=== PATIENT | female | born 1990 | race Caucasian/White ===

== ENCOUNTER 2020-03-09 12:56 | Inpatient (IN) | payer BC ==
[2020-03-14] MEDS ORDERED: TERBUTALINE 1 MG/ML VIAL SQ PRN (06:22)
[2020-03-14] MEDS ORDERED: CARBOPROST TROMETHAMINE 250 MCG/ML 1 ML AMP IM PRN (06:22)
[2020-03-14] MEDS ORDERED: OXYTOCIN 10 UNIT/ML 1 ML VIAL IM PRN (06:22)
[2020-03-14] MEDS ORDERED: LIDOCAINE 0.5% (PF) 5 MG/ML (50 ML SDV) SQ PRN (06:22)
[2020-03-14] MEDS ORDERED: METHYLERGONOVINE 0.2 MG/ML 1 ML AMP IM PRN (06:22)
[2020-03-14] MEDS ORDERED: OXYTOCIN 30 UNITS/500 ML NS 30 UNIT in SALINE 1 500ML.BAG IV SCH (06:30)
[2020-03-14] MEDS: LACTATED RINGERS 1,000 ML IV SCH ×3 (06:39→23:00)
[2020-03-14 07:00] LABS: Anisocytosis Slight; Basophils % (A) 0 %; Eosinophils % (A) 0 %; HCT 34.9 % (34.0-46.0); HGB 10.8 gm/dL (11.4-16.0); Hypochromasia Slight; Lymphocytes # (A) 1.5 k/uL (1.0-4.8); Lymphocytes % (A) 10 %; Mean Platelet Volume 10.5; Monocytes # (A) 0.6 k/uL (0-1.0); Monocytes % (A) 4 %; Neutrophils % (A) 84 %; Platelet Count 233 k/uL (150-450); RBC 4.15 m/uL (3.80-5.40); RDW 17.4 % (11.5-15.5); WBC 14.4 k/uL (3.8-10.6)
[2020-03-14] MEDS ORDERED: ROPIVACAINE 100 MG, fentaNYL (PF) 200 MCG in SODIUM CHLORIDE 0.9% 76 ML EPIDURAL ONE (08:56)
[2020-03-14] MEDS ORDERED: CITRIC ACID-SODIUM CITRATE 15 ML CUP PO ONE (14:11)
[2020-03-14] MEDS ORDERED: ONDANSETRON 4 MG/2 ML VIAL ONE (14:18)
[2020-03-14] MEDS ORDERED: HYDROmorphone (PF) 1 MG/ML ONE (14:18)
[2020-03-14] MEDS ORDERED: DEXAMETHASONE SOD PHOS (MDV) 100 MG/10 ML VIAL ONE (14:18)
[2020-03-14] MEDS ORDERED: MORPHINE SULFATE (PF) 0.3 MG/0.3 ML SYR ONE (14:18)
[2020-03-14] MEDS ORDERED: KETAMINE 10 MG/ML 20 ML VIAL ONE (14:18)
[2020-03-14] MEDS ORDERED: KETOROLAC 30 MG/ML 1 ML VIAL ONE (14:18)
[2020-03-14] MEDS ORDERED: OXYTOCIN 10 UNIT/ML 1 ML VIAL ONE (14:18)
[2020-03-14] MEDS ORDERED: ONDANSETRON 4 MG/2 ML VIAL IVP PRN (15:22)
[2020-03-14] MEDS ORDERED: diphenhydrAMINE 25 MG CAP PO PRN (15:22)
[2020-03-14] MEDS ORDERED: METOCLOPRAMIDE 5 MG/ML 2 ML VIAL IVP PRN (15:22)
[2020-03-14] MEDS ORDERED: diphenhydrAMINE 50 MG CAP PO PRN (15:22)
[2020-03-14] MEDS ORDERED: ZOLPIDEM 5 MG TAB PO PRN (15:22)
[2020-03-14] MEDS ORDERED: NALOXONE 0.4 MG/ML 1 ML VIAL IV PRN (15:22)
[2020-03-14] MEDS ORDERED: HYDROcodone/APAP 5-325MG 1 EACH TAB PO PRN (15:22)
[2020-03-14] MEDS ORDERED: diphenhydrAMINE 50 MG/ML 1 ML VIAL IVP PRN ×2 (15:22)
[2020-03-14] MEDS ORDERED: ACETAMINOPHEN IV (For NPO) 1,000 MG in EMPTY BAG 1 BAG IVPB ONE (15:22)
[2020-03-14] MEDS ORDERED: IBUPROFEN IV 800 MG in SODIUM CHLORIDE 0.9% 250 ML IV ONE (15:24)
[2020-03-14] MEDS ORDERED: OXYTOCIN 20 UNITS/1000 ML NS 1,000 ML IV SCH (15:30)
--- NOTE | 2020-03-14 15:31 | P.HPOB ---
History of Present Illness H&P Date: 03/14/20 Chief Complaint: IUP at 40 and 5/sevenths weeks, labor This is a pleasant 29-year-old 1 para 0 at 40-5/7 weeks that presents to labor and delivery for induction of labor. Patient notes contractions on yesterday morning. Patient was sanjiv every 7 minutes. Patient is significantly uncomfortable this morning. Patient notes good movement denies vaginal bleeding. Patient has been receiving routine care with myself since the first trimester. Review of Systems Constitutional: Denies chills, Denies fatigue, Denies fever Ears, nose, mouth and throat: Denies headache Cardiovascular: Reports leg edema Gastrointestinal: Denies constipation, Denies diarrhea, Denies nausea, Denies vomiting Genitourinary: Reports Past Medical History Past Medical History: No Reported History History of Any Multi-Drug Resistant Organisms: None Reported Past Surgical History: No Surgical Hx Reported Past Anesthesia/Blood Transfusion Reactions: No Reported Reaction Past Psychological History: No Psychological Hx Reported Smoking Status: Never smoker Past Alcohol Use History: None Reported Past Drug Use History: None Reported - Past Family History Mother Family Medical History: No Reported History Medications and Allergies Home Medications Medication Instructions Recorded Confirmed Type Ferrous Sulfate [Feosol] 325 mg PO DAILY 03/14/20 03/14/20 History Loratadine [Claritin] 10 mg PO DAILY 03/14/20 03/14/20 History Pnv,Calcium 72/Iron/Folic Acid 1 each PO DAILY 03/14/20 03/14/20 History [ Plus Tablet] Allergies Allergy/AdvReac Type Severity Reaction Status Date / Time No Known Allergies Allergy Verified 03/14/20 06:20 Exam Osteopathic Statement: *. No significant issues noted on an osteopathic structural exam other than those noted in the History and Physical/Consult. Vital Signs Temp Pulse Resp BP Pulse Ox 03/14/20 06:30 99.0 F 134 H 18 137/85 97 Intake and Output 03/13/20 03/14/20 03/14/20 22:59 06:59 14:59 Other: Weight 102.058 kg Targeted physical exam is performed and state in general this a well-nourished well-developed female in obvious distress, labor pains. Breathing is noted to nonlabored, heart has regular rate and rhythm, abdomen is gravid, heart tones are noted to be category 1 and she is sanjiv every 2 minutes. On cervical exam she is 5/90/-1 station bulging bag of water is noted, amniotomy is performed and meconium-stained fluid is noted. Results Result Diagrams: 03/14/20 06:50 Abnormal Lab Results - Last 24 Hours (Table) 03/14/20 Range/Units 06:50 WBC 14.4 H (3.8-10.6) k/uL Hgb 10.8 L (11.4-16.0) gm/dL RDW 17.4 H (11.5-15.5) % Neutrophils # 12.0 H (1.3-7.7) k/uL Assessment and Plan (1) Post-dates Current Visit: Yes Status: Acute Code(s): O48.0 - POST-TERM SNOMED Code(s): 05764850 (2) Meconium in amniotic fluid Current Visit: Yes Status: Acute Code(s): P96.83 - MECONIUM STAINING SNOMED Code(s): 265635198 Plan: Patient is admitted to labor and delivery, Pitocin augmentation of labor is begun as I do believe patient wasn't in labor upon admission. Patient does desire epidural as she is 5 cm currently. Will watch closely as patient had an ultrasound this week revealing a 9 lbs. 11 oz. infant. Patient is aware of this risks are reviewed we will monitor labor closely.
--- NOTE | 2020-03-14 15:31 | P.OP ---
Date of Procedure: 03/14/20 Preoperative Diagnosis: IUP at 40 and 5/sevenths weeks, meconium-stained fluid, arrest of descent, tachycardia Postoperative Diagnosis: Same Procedure(s) Performed: Primary low transverse section Anesthesia: epidural Surgeon: Roula Rader Typewriter Aligner #1: Dave Livingston Estimated Blood Loss (ml): 500 IV fluids (ml): 1,000 Urine output (ml): 50 Pathology: other (Placenta) Condition: stable Disposition: observation Indications for Procedure: This pleasant 29-year-old 1 para 0 at 40-5/7 weeks presented to labor and delivery for induction of labor and was noted to be in active labor. Patient was noted to be 5 cm/90/-2 station with a bulging bag of water. Patient was admitted to labor and delivery amniotomy was performed and clear fluid was obtained. Patient was placed on Pitocin for augmentation of labor. Patient became uncomfortable quickly requesting epidural placement. Epidural was placed without difficulty by the anesthesia . Patient progressed to 8 cm and s oon afterwards was noted to be completely dilated. Patient started pushing after about 1 hour of pushing no descent was noted. There was an increasing amount of It. Patient was counseled on primary secondary to arrest of descent, patient stated understanding and wished to proceed. Operative Findings: Normal uterus tubes and ovaries were appreciated, female delivered at 1441, weight of 8 lbs. 5 oz., Apgars of 9 and 9 at one and 5 minutes respectively. Description of Procedure: Patient was taken back to the operating suite where epidural anesthesia was found be adequate. She was prepped and draped in normal sterile fashion in the dorsal supine position a Pfannenstiel skin incision was made with the scalpel and carried through the underlying layer of fascia. The fascia was then incised in the midline and extended laterally. The superior aspect of the fascial incision was grasped j carlos clamps, elevated and underlying rectus muscles dissected off sharply. The inferior aspect of the fascial incision was grasped with Coffey clamps, elevated and underlying rectus muscles dissected off sharply. The rectus muscles were in the midline the peritoneum was identified and entered. The bladder blade was then inserted into the abdomen. The vesicouterine peritoneum was identified and the bladder flap was then created using sharp dissection, the bladder blade was reinserted. The scalpel was used to make a hysterotomy incision, the was then delivered in a vertex presentation, the umbo cord was doubly clamped and cut, spontaneous cry was noted at . The placenta was then removed manually and the uterus was cleared of all clots and debris. The uterine was removed from the abdomen and h ysterotomy incision was inspected and closed with 0 Vicryl in a running locked fashion. A second layer of suture was used to obtain hemostasis. The pelvis was then irrigated copiously, the uterus then returned to the abdomen. Hysterotomy incision was noted to be hemostatic, gutters were cleared of all clots and debris. Once again the hysterotomy incision was inspected and hemostasis was appreciated. The peritoneum was then loosely reapproximated. The fascia was then closed with 0 Vicryl in a running fashion from one lateral edge the other. The subcutaneous tissue was irrigated hemostasis was appreciated. And it was closed with 3-0 Vicryl. The skin incision was closed with 4-0 Vicryl in a subarticular fashion. Steri-Strips and sterile dressings were applied as needed. All counts are correct 2 Patient and infant tolerated delivery well
[2020-03-14] MEDS: SENNOSIDES-DOCUSATE SODIUM 1 EACH TAB PO SCH (20:29)
[2020-03-15] MEDS: LACTATED RINGERS 1,000 ML IV SCH ×2 (00:53)
[2020-03-15] MEDS: IBUPROFEN 600 MG TAB PO PRN ×3 (06:08→23:34)
--- NOTE | 2020-03-15 07:08 | P.PN ---
Progress Note - Text Progress Note Date: 03/15/20 Postoperative day 1 status post section under epidural anesthesia, and epidural morphine given for postoperative analgesia, patient doing well, there is no anesthesia related complications, patient complaining of some incisional pain which is improved with oral pain medication Patient had no headache, vital signs stable , Assessment and plan= postop day 1 status post , doing well there is no anesthesia related complication.
[2020-03-15] MEDS: SENNOSIDES-DOCUSATE SODIUM 1 EACH TAB PO SCH ×2 (08:01→21:34)
[2020-03-15] MEDS: PRENATAL VIT-IRON-FOLIC ACID 1 EACH CAP PO SCH (08:01)
[2020-03-15] MEDS: FERROUS SULFATE 325 MG TAB PO SCH (08:02)
--- NOTE | 2020-03-15 08:47 | P.PNOBGPC ---
Subjective - Subjective Principal diagnosis: POD 1 LTCS Interval history: This patient did well overnight. She is ambulating and voiding without difficulty. She is complaining of symptoms discomfort this morning. She denies nausea or vomiting with clear liquid tray this morning. She is breast feeding with some difficulty but is working with the spa consultant. Lochia is minimal. Patient reports: Reports appetite normal, Reports voiding normally, Reports pain well controlled, Reports ambulating normally [place]: doing well Objective - Vital Signs Latest vital signs: Vital Signs Temp Pulse Resp BP Pulse Ox 03/15/20 03:59 96.9 F L 79 16 112/73 97 03/15/20 00:00 98.4 F 98 16 117/77 96 03/14/20 20:00 97.8 F 115 H 18 131/78 97 03/14/20 17:30 98.6 F 103 H 16 120/70 95 03/14/20 17:00 98.4 F 118 H 16 125/74 03/14/20 16:30 109 H 16 114/57 03/14/20 16:15 117 H 16 118/66 03/14/20 16:00 133 H 16 121/65 97 03/14/20 15:45 109 H 16 130/77 98 03/14/20 15:30 110 H 16 141/68 99 03/14/20 15:15 99.8 F H 107 H 16 136/88 97 Intake and Output 03/14/20 03/15/20 03/15/20 22:59 06:59 14:59 Output Total 520 925 Balance -520 -925 Output: Urine 20 925 Estimated Blood Loss 500 Other: # Voids 1 - Exam Extremities: Present: normal, edema Abdomen: Present: normal appearance, soft Incision: Present: normal, dry, intact Uterus: Present: normal, firm Assessment and Plan (1) Post-dates Current Visit: Yes Status: Acute Code(s): O48.0 - POST-TERM SNOMED Code(s): 81208962 (2) Meconium in amniotic fluid Current Visit: Yes Status: Acute Code(s): P96.83 - MECONIUM STAINING SNOMED Code(s): 974099126 (3) Arrest of descent, delivered, current hospitalization Current Visit: Yes Status: Acute Code(s): O62.1 - SECONDARY UTERINE INERTIA SNOMED Code(s): 52301458 (4) S/P section Current Visit: Yes Status: Acute Code(s): Z98.891 - HISTORY OF UTERINE SCAR FROM PREVIOUS SURGERY SNOMED Code(s): 435274978 Plan: Patient is doing well postoperatively, will plan to advance diet to regular this morning. Increased ambulation is encouraged. Continue routine care.
[2020-03-15 09:02] LABS: Anisocytosis Slight; Basophils % (A) 0 %; Eosinophils % (A) 0 %; HCT 24.8 % (34.0-46.0); Hypochromasia Marked; Lymphocytes # (A) 2.4 k/uL (1.0-4.8); Lymphocytes % (A) 15 %; MCH 26.6 pg (25.0-35.0); MCHC 31.2 g/dL (31.0-37.0); MCV 85.2 fL (80.0-100.0); Mean Platelet Volume 9.6; Monocytes # (A) 0.6 k/uL (0-1.0); Monocytes % (A) 4 %; Neutrophils # (A) 13.1 k/uL (1.3-7.7); Neutrophils % (A) 80 %; Platelet Count 210 k/uL (150-450); RBC 2.91 m/uL (3.80-5.40); RDW 17.5 % (11.5-15.5); WBC 16.4 k/uL (3.8-10.6)
[2020-03-15 09:06] LABS: HGB 7.7 gm/dL (11.4-16.0)
[2020-03-16] MEDS: ACETAMINOPHEN TAB 325 MG TAB PO PRN ×2 (03:59→09:51)
[2020-03-16] MEDS: LACTATED RINGERS 1,000 ML IV SCH ×2 (05:34→05:35)
[2020-03-16] MEDS: IBUPROFEN 600 MG TAB PO PRN ×2 (05:47→11:18)
[2020-03-16 08:02] VITALS: BP 115/69; PULSE 98; RESP 15; TEMP 98
--- NOTE | 2020-03-16 09:26 | P.DS ---
Providers Date of admission: 03/14/20 06:01 Expected date of discharge: 03/16/20 Attending physician: Roula Rader Primary care physician: Stated None - Discharge Diagnosis(es) (1) Post-dates Current Visit: Yes Status: Acute (2) Meconium in amniotic fluid Current Visit: Yes Status: Acute (3) Arrest of descent, delivered, current hospitalization Current Visit: Yes Status: Acute (4) S/P section Current Visit: Yes Status: Acute (5) Anemia affecting first Current Visit: Yes Status: Acute Hospital Course: This pleasant 29-year-old 1 para 0 at 40-5/7 weeks presented to labor and delivery for induction of labor secondary to postdates, and suspected LGA. Patient had an ultrasound in the office revealing a 9 lbs. 11 oz. . Patient had been receiving routine care with myself for further details please see the dictated history and physical. Patient was admitted to labor and delivery and Pitocin induction of labor was begun. Patient was noted to be sanjiv approximately 24 hours prior and was already 5 cm on admission. Patient underwent amniotomy and thick meconium-stained fluid was noted. Patient soon requested epidural placement after amniotomy. Epidural was placed without difficulty by the anesthesia department. She progressed to complete began pushing when urge was felt and minimal change in station was noted after allowing the patient to labor down for approximately an hour and a half and then pushing for 1 hour. At that time patient was counseled on primary secondary to arrest of descent. Patient stated understanding and wished to proceed. Patient was taken back for primary low transverse section. For further details on the please see the operative report. Patient delivered a liveborn female at 1441, weight of 8 lbs. 5 oz. with Apgars of 9 and 9 at one and 5 minutes respectively. Patient's course has been uneventful. On this day #2 she is ambulating and voiding without difficulty. She is tolerating a regular diet without nausea or vomiting. She states her pain is controlled with ibuprofen/Tylenol. She is breast-feeding with some difficulty but notes she is leaking she is just struggling with latch. She would like discharge home today. Patient Condition at Discharge: Good Plan - Discharge Summary New Discharge Prescriptions: No Action Ferrous Sulfate [Feosol] 325 mg PO DAILY Loratadine [Claritin] 10 mg PO DAILY Pnv,Calcium 72/Iron/Folic Acid [ Plus Tablet] 1 each PO DAILY Discharge Medication List Ferrous Sulfate [Feosol] 325 mg PO DAILY 03/14/20 [History] Loratadine [Claritin] 10 mg PO DAILY 03/14/20 [History] Pnv,Calcium 72/Iron/Folic Acid [ Plus Tablet] 1 each PO DAILY 03/14/20 [History] Follow up Appointment(s)/Referral(s): Roula Rader DO [Doctor of Osteopathic Medicine] - 2 Weeks Patient Instructions/Handouts: (DC), (GEN) Activity/Diet/Wound Care/Special Instructions: No tub baths or intercourse until appointment. [id number] ibuprofen/Tylenol as needed for pain. Patient is to call with any concerns prior to HER-2 week postoperative appointment should she have any. Discharge Disposition: HOME SELF-CARE
[2020-03-16] MEDS: SENNOSIDES-DOCUSATE SODIUM 1 EACH TAB PO SCH (09:51)
[2020-03-16] MEDS: PRENATAL VIT-IRON-FOLIC ACID 1 EACH CAP PO SCH (11:22)
[2020-03-16] MEDS: FERROUS SULFATE 325 MG TAB PO SCH (11:22)
--- NOTE | 2020-03-18 15:24 | CDI ---
acute on chronic anemia Documentation Clarification Form Date: 03/18/20 From: Benita Barr CCS Phone: If you have a question about this query, please contact Tracey Vazquez, Infection Preventionist at [phone] between 8am and 5pm. Admit Date: 03/14/20 Discharge Date:03/16/20 Patient Name: Nova Monteiro Visit Number: [id number] ATTENTION: The Clinical Documentation Specialists (CDI) and [facility] Coding Staff appreciate your assistance in clarifying documentation. Please respond to the clarification below the line at the bottom and electronically sign. The CDI & [facility] Coding staff will review the response and follow-up if needed. Please note: Queries are made part of the Legal Health Record. If you have any questions, please contact the author of this message via ITS. Dear Dr. Rader, Anemia is documented in the Discharge Summary. History/Risk Factors: Section, EBL 500 ml Clinical indicators: Anemia Hemoglobin: 10.8, 7.7 Hematocrit: 34.9, 24.8 Treatment: Feosol 325 mg PO Daily In order to capture the severity of condition, please clarify the type of anemia and etiology if known:. Acute blood loss anemia Acute on chronic blood loss anemia Chronic blood loss anemia Iron deficiency anemia Hemolytic anemia Nutritional anemia Unable to determine Other, please specify MTDD
--- NOTE | 2020-03-21 11:47 | CDI ---
Documentation Clarification Form Date: 03/21/20 From: Benita Barr CCS Phone: If you have a question about this query, please contact Tracey Vazquez, Mule Spinner at [phone] between 8am and 5pm. Admit Date: 03/14/20 Discharge Date:03/16/20 Patient Name: Nova Monteiro Visit Number: [id number] ATTENTION: The Clinical Documentation Specialists (CDI) and [facility] Coding Staff appreciate your assistance in clarifying documentation. Please respond to the clarification below the line at the bottom and electronically sign. The CDI & [facility] Coding staff will review the response and follow-up if needed. Please note: Queries are made part of the Legal Health Record. If you have any questions, please contact the author of this message via ITS. Dear Dr. Rader, Thank you for responding 'acute on chronic anemia' to previous query dated 03/18. Documentation needs to also specify the type/cause of anemia for accurate data collection. History/Risk Factors: Section, EBL 500 ml Clinical indicators: Anemia Hemoglobin: 10.8, 7.7 Hematocrit: 34.9, 24.8 Treatment: Feosol 325 mg PO Daily In order to capture the severity of condition, please clarify the etiology if known:. Is the acute on anemia due to: Blood loss Iron deficiency Nutritional anemia Unable to determine Other, please specify gestational anemia complicated by acute blood loss anemia MTDD
== END 2020-03-16 16:30 | disposition home or self-care (01) | DRG 787 ==
LOC: 4FBP 03-14 06:01
PROVIDERS: ADMIT Obstetrics & Gynecology Obstetrics; ATTEND Obstetrics & Gynecology Obstetrics
PROC: 10907ZC Drainage of Amniotic Fluid, Therapeutic from Products of Conception, Via Natural or Artificial Opening (ICD-10-PCS; 2020-03-14)
PROC: 3E033VJ Introduction of Other Hormone into Peripheral Vein, Percutaneous Approach (ICD-10-PCS; 2020-03-14)
PROC: 3E0R3BZ Introduction of Anesthetic Agent into Spinal Canal, Percutaneous Approach (ICD-10-PCS; 2020-03-14)
PROC: 10D00Z1 Extraction of Products of Conception, Low, Open Approach (ICD-10-PCS; principal; 2020-03-14 14:24)
DX: O48.0 Post-term pregnancy (principal); D62 Acute posthemorrhagic anemia; O77.0 Labor and delivery complicated by meconium in amniotic fluid; O76 Abnormality in fetal heart rate and rhythm complicating labor and delivery; O62.1 Secondary uterine inertia; Z11.59 Encounter for screening for other viral diseases; D64.89 Other specified anemias; O99.02 Anemia complicating childbirth; O36.63X0 Maternal care for excessive fetal growth, third trimester, not applicable or unspecified; Z37.0 Single live birth; Z3A.40 40 weeks gestation of pregnancy; Z79.899 Other long term (current) drug therapy
CPT/HCPCS: 85025; 86850; 86900; 86901; 87635; 88307